=== PATIENT | male | born 1985 | race American Indian/Alaskan Native ===

== ENCOUNTER 2017-10-18 04:30 | Emergency (ER) | payer OTHER, BC ==
[2017-10-18 04:44] VITALS: RESP 16; TEMP 98.6; O2SAT 100
--- NOTE | 2017-10-18 05:24 | ED PDOC ---
Upper Extremity Pain/Injury Time Seen by Provider: 10/18/17 04:46 Chief Complaint (Nursing): Upper Extremity Problem/Injury History Per: Patient History/Exam Limitations: no limitations Additional Complaint(s): 32 y/o M with a PMHx of HCM presents to ED c/o L elbow pain. Pain began 4 days ago after hitting his elbow with a big metallic device at work. Pt reports pain was tolerable at first; however, the next day L elbow was moderately painful and associated with local swelling. Pain is sharp, constant, 3-4/10 intensity most of the time, radiates to L 3rd and 4rd digits and aggravated with palpation and precipitous movements. Pt applied iced compresses and swelling improved, applied later warm compresses for pain relief. NO analgesics intake. Pt has been able to continue with his daily activities despite L elbow pain. Pt denies fever, CP, SOB, paresthesias or cyanosis. -Pt has elevated BP readings. Pt does NOT take any medications and he was reported to have borderline HTN. Last visit with PCP was 1 year ago. Allergies: Penicillin PMHx: Hypertrophic cardiomyopathy. Medications: None. PSHx: denied FHx: Extensive history of different cardiomyopathies in his family. SHx: denies tobacco, alcohol or rec drugs. Past Medical History Vital Signs: Last Vital Signs Temp 98.6 F 10/18/17 04:42 Pulse 85 10/18/17 04:42 Resp 16 10/18/17 04:42 BP 173/112 H 10/18/17 04:58 Pulse Ox 100 10/18/17 04:42 - Medical History PMH: Asthma Other PMH: Hypertrophic cardiomyopathy. - Surgical History Surgical History: No Surg Hx - Family History Family History: States: Other Other Family History: Cardiomyopathy. - Social History Current smoker - smoking cessation education provided: No Alcohol: None Drugs: Denies - Home Medications Home Medications: Ambulatory Orders Medication Instructions Recorded Polymyxin/Trimethoprim Sulfate 10 ml OD Q4 #1 bottle 04/22/15 [Polytrim Ophth Soln] Polymyxin B Sulf/Trimethoprim 2 drop OD Q6H #1 bottle 07/07/16 [Polymyxin B-Tmp Eye Drops] - Allergies Allergies/Adverse Reactions: Allergies Allergy/AdvReac Type Severity Reaction Status Date / Time Penicillins Allergy RASH Verified 10/18/17 04:41 Review of Systems Constitutional: Negative for: Fever, Chills ENT: Negative for: Ear Pain, Nose Congestion Cardiovascular: Negative for: Chest Pain, Palpitations Respiratory: Negative for: Cough, Shortness of Breath Gastrointestinal: Negative for: Nausea, Vomiting, Abdominal Pain Genitourinary Male: Negative for: Dysuria Musculoskeletal: Negative for: Neck Pain, Back Pain Skin: Negative for: Rash Neurological: Negative for: Weakness Physical Exam - Physical Exam Appears: Positive for: Well, Non-toxic, No Acute Distress Head Exam: Positive for: ATRAUMATIC, NORMAL INSPECTION Skin: Positive for: Normal Color, Warm, Dry Eye Exam: Positive for: Normal appearance ENT: Positive for: Normal ENT Inspection Neck: Positive for: Normal, Painless ROM Cardiovascular/Chest: Positive for: Regular Rate, Rhythm Respiratory: Positive for: Normal Breath Sounds Gastrointestinal/Abdominal: Positive for: Normal Exam, Bowel Sounds, Soft Back: Positive for: Normal Inspection. Negative for: Vertebral Tenderness, Decreased ROM Extremity: Positive for: Tenderness (on L medial elbow. On B/L upper extremities : strenght 5/5 bilaterally, SILT b/l, DTR's 2 b/l.). Negative for: Swelling Neurologic/Psych: Positive for: Alert, Oriented. Negative for: Motor/Sensory Deficits - ECG O2 Sat by Pulse Oximetry: 100 Medical Decision Making Medical Decision Makin32 y/o M under evaluation of Left elbow pain. Plan: --X ray of L elbow --Acetaminophen 06:10 X ray of L elbow was unremarkable. Pt was counseled to follow up with Orthopedist as outpatient for further evaluation. Pt instructed to take OTC Tylenol for pain management. 06:14 BP was 152/127-elevated. Pt was given PO Clonidine, will measure BP again. 06:59 DONTA 144/101-improved. 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 Pt educated on HTN complications. Disposition - Clinical Impression Clinical Impression: Elbow injury - Patient ED Disposition Is Patient to be Admitted: No - Disposition Referrals: [facility] [Outside] [facility] [Outside] Padilla Armendariz III, MD [Staff Provider] - Disposition: Routine/Home Disposition Time: 07:09 Condition: IMPROVED Additional Instructions: follow up with orthopedics as instructed for further evaluation return to the ED with any worsening or concerning symptoms Instructions: Elbow Sprain (DC) Forms: [employer] (Slovenian)
[2017-10-18 06:20] VITALS: PULSE 70
[2017-10-18 07:09] VITALS: BP 144/101
--- NOTE | 2017-10-18 08:58 | RAD ---
PROCEDURE: Radiographs of the left elbow. HISTORY: Left elbow trauma. COMPARISON: No prior. FINDINGS: BONES: No acute fracture or destructive bony lesion identified. JOINTS: No subluxation or dislocation. SOFT TISSUES: Normal. JOINT EFFUSION: None. OTHER FINDINGS: None IMPRESSION: Unremarkable radiographs of the left elbow.
== END 2017-10-18 06:55 | disposition home or self-care (01) ==
LOC: H.ER 04:30
DX: S59.901A Unspecified injury of right elbow, initial encounter (principal); W22.8XXA Striking against or struck by other objects, initial encounter; Y99.0 Civilian activity done for income or pay; I42.2 Other hypertrophic cardiomyopathy; J45.909 Unspecified asthma, uncomplicated; Z88.0 Allergy status to penicillin

== ENCOUNTER 2018-03-04 07:49 | Emergency (ER) | payer BC, OTHER ==
[2018-03-04 07:51] VITALS: BMI 32.3
[2018-03-04 07:53] VITALS: O2SAT 100
[2018-03-04] MEDS ORDERED: PROPARACAINE/FLUORESCEIN SOD 100 DROP/5 ML BOTTLE OD STA (08:02)
[2018-03-04] MEDS ORDERED: PROPARACAINE/FLUORESCEIN SOD 100 DROP/5 ML BOTTLE ONE (08:06)
--- NOTE | 2018-03-04 08:09 | ED PDOC ---
HPI: Eye Injury/Pain Time Seen by Provider: 03/04/18 07:57 Chief Complaint (Nursing): Eye Problem Chief Complaint (Provider): Eye Problem History Per: Patient History/Exam Limitations: no limitations Onset/Duration Of Symptoms: Hrs (x1) Current Symptoms Are (Timing): Still Present Additional Complaint(s): 32 year old male presents to the emergency department with a complaint of irritation to his left eye, crusted shut since when waking up this morning associated with itching and increasing lacrimal drainage. He denies any change in vision, fever, contact lens use or current foreign body sensation. Patient reports taking his son for a haircut yesterday and believes he may have had some small hair in his left eye. PMD: none provided Past Medical History Reviewed: Historical Data, Nursing Documentation, Vital Signs Vital Signs: Last Vital Signs Temp 98 F 03/04/18 07:51 Pulse 72 03/04/18 07:51 Resp 17 03/04/18 07:51 BP 170/111 H 03/04/18 07:51 Pulse Ox 100 03/04/18 07:51 - Medical History PMH: Asthma - Surgical History Surgical History: No Surg Hx - Family History Family History: States: No Known Family Hx - Social History Current smoker - smoking cessation education provided: No Ex-Smoker (has not smoked in the last 12 months): No Alcohol: None Drugs: Denies - Home Medications Home Medications: Ambulatory Orders Medication Instructions Recorded Polymyxin/Trimethoprim Sulfate 10 ml OD Q4 #1 bottle 04/22/15 [Polytrim Ophth Soln] Polymyxin B Sulf/Trimethoprim 2 drop OD Q6H #1 bottle 07/07/16 [Polymyxin B-Tmp Eye Drops] Polymyxin/Trimethoprim Sulfate 1 drop OS Q3 #1 bottle 03/04/18 [Polytrim Ophth Soln] - Allergies Allergies/Adverse Reactions: Allergies Allergy/AdvReac Type Severity Reaction Status Date / Time Penicillins Allergy RASH Verified 03/04/18 07:56 Review of Systems ROS Statement: Except As Marked, All Systems Reviewed And Found Negative Constitutional: Negative for: Fever Eyes: Positive for: Conjunctivae Inflammation (left eye with itching and drainage). Negative for: Vision Change, Other (FB sensation) Physical Exam - Reviewed Nursing Documentation Reviewed: Yes Vital Signs Reviewed: Yes - Physical Exam Appears: Positive for: Non-toxic, No Acute Distress Head Exam: Positive for: ATRAUMATIC, NORMAL INSPECTION, NORMOCEPHALIC Eye Exam: Positive for: PERRL, Conjunctival injection (left eye with increasing lacrimal drainage). Negative for: Other (photophobia) Neurologic/Psych: Positive for: Alert, Oriented - ECG O2 Sat by Pulse Oximetry: 100 (RA) Pulse Ox Interpretation: Normal Medical Decision Making Medical Decision Making: Initial Impression: Conjunctivitis Initial Plan: * Flucaine eye drops Time: 806 --Old records reviewed: patient has had multiple visits for conjunctivitis. Time: 809 Fluorescein eye test performed on left eye (see procedure note). Time: 814 --Provider recommends a mandatory ophthalmology follow up for recurrent conjunctivitis seen in previous visits. Upon provider re-evaluation, patient is feeling better, medically stable and requires no further treatment in the ED at this time. Patient will be discharged home with Rx for Polytrim Ophth Soln. Counseling was provided and all questions were answered regarding diagnosis. There is agreement to discharge plan. Return if symptoms persist or worsen. Clinical Impression: Eye infection Scribe Attestation: Documented by Kate Judge, acting as a scribe for Joshua Echevarria III, DO. Provider Scribe Attestation: All medical record entries made by the Scribe were at my direction and personally dictated by me. I have reviewed the chart and agree that the record accurately reflects my personal performance of the history, physical exam, medical decision making, and the department course for this patient. I have also personally directed, reviewed, and agree with the discharge instructions and disposition. Procedures - Eye Procedure Progress: Time: 809 Fluorescein eye test performed on left eye --Obtained verbal consent from patient. --Test shows no corneal fluorescein uptake. --Left eyelid was inverted, noting a possible stye on medial aspect of superior lid. --Patient tolerated procedure well. Disposition - Clinical Impression Clinical Impression: Eye infection - Patient ED Disposition Is Patient to be Admitted: No Counseled Patient/Family Regarding: Studies Performed, Diagnosis, Need For Followup, Rx Given - Disposition Referrals: Roger Calvo MD [Staff Provider] - Disposition: Routine/Home Disposition Time: 08:15 Condition: STABLE Additional Instructions: Avoid close contact with others. Wash hands frequently. Followup with eye doctor Dr Calvo in 2-3 days. Prescriptions: Polymyxin/Trimethoprim Sulfate [Polytrim Ophth Soln] 1 drop OS Q3 #1 bottle Instructions: Conjunctivitis ([place]) Forms: [email or web address] (Welsh), [facility] ED School/Work Excuse
[2018-03-04 08:32] VITALS: BP 128/76; PULSE 78; RESP 19; TEMP 97
== END 2018-03-04 08:32 | disposition home or self-care (01) ==
LOC: H.ER 07:49
DX: H44.002 Unspecified purulent endophthalmitis, left eye (principal)